=== PATIENT | female | born 1990 | race Caucasian/White ===

== ENCOUNTER → 2021-05-11 15:38 | Outpatient (BNVA) | payer SELFPAY | PROVIDERS: PCP Family Medicine; Visit Provider Family Medicine | DX: M25.562 Pain in left knee (principal); M79.672 Pain in left foot | CPT/HCPCS: 73562; 73630 ==

== ENCOUNTER 2021-12-09 14:15 | Emergency (ER) | payer MEDICAID, SELFPAY ==
[2021-12-09 14:20] VITALS: BP 128/75; PULSE 107; RESP 14; TEMP 36.2; O2SAT 100; BMI 23.0
--- NOTE | 2021-12-09 14:58 | CTR_ITS ---
PROCEDURE INFORMATION: Exam: CT Neck With Contrast Exam date and time: 12/09/2021 4:05 PM Age: 31 years old Clinical indication: Neck pain and other: Left side face/teeth pain; Additional info: Left side facial pain, swelling and trouble swallowing. Multiple antibiotics not helping TECHNIQUE: Imaging protocol: Computed tomography of the neck with contrast. Radiation optimization: All CT scans at this facility use at least one of these dose optimization techniques: automated exposure control; mA and/or kV adjustment per patient size (includes targeted exams where dose is matched to clinical indication); or iterative reconstruction. Contrast material: OMNIPAQUE 350; Contrast volume: 95 ml; Contrast route: INTRAVENOUS (IV); COMPARISON: No relevant prior studies available. RADIATION DOSE METRICS: Total DLP (mGy-cm): 210.61 FINDINGS: Paranasal sinuses: There is marked mucosal thickening inferior left maxillary sinus measuring up to 18 mm in thickness. This could represent odontogenic maxillary sinusitis. There is mucosal thickening in multiple ethmoid air cells. Dental: There are findings of extraction of the left 1st upper maxillary molar with an empty air-filled socket. Pharynx: Tonsils and adenoids are mildly prominent without evidence of tonsillitis. Larynx: Unremarkable. Epiglottis is normal. Prevertebral and retropharyngeal spaces: Unremarkable. Salivary glands: Normal. Glands are normal in size. Thyroid: There are few tiny thyroid cysts. No further evaluation necessary. Lymph nodes: Unremarkable. No lymphadenopathy. Trachea: Visualized trachea is unremarkable. Lungs: Unremarkable as visualized. Bones/joints: Unremarkable. No acute fracture. 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 Soft tissues: Unremarkable. No significant soft tissue swelling. CT/CT neck w con* [id number] IMPRESSION: Left maxillary sinus disease, worrisome for odontogenic sinusitis. COMMENTS: Consistent with the [employer]'s Incidental Findings Committee white paper (J Am Valdez Radiol 2015): In patients under 35 years old with an incidental thyroid nodule equal to or greater than [address], MRI or extrathyroidal US, further evaluation with dedicated thyroid US is recommended for patients with normal life expectancy and without comorbidities. For smaller nodules without suspicious features, no further evaluation or follow up is recommended.
--- NOTE | 2021-12-09 14:59 | W.ED.DENTAL ---
HPI - Dental/Oral General: Chief complaint: Dental/Oral Stated complaint: tooth infection Time Seen by Provider: 12/09/21 14:20 History of Present Illness: Patient is a 31-year-old female comes to the ED with left maxillary pain and swelling. Approximately 7 days ago patient had one of her top left molars removed. Since dental procedure she has been having left maxillary pain and swelling. She has been on a course of oral antibiotics and it has not helped. She endorses having left maxillary sinus pain and pressure. Endorses postnasal drainage. Her voice is changed and sounds more hoarse and she also endorses having some trouble swallowing. She has had some low-grade fevers and some episodes of nausea and vomiting but is able to keep most of her p.o. food and fluids down. She also endorses feeling like she has trouble breathing due to the postnasal drip and sinus congestion and drainage. Patient has been taking Tylenol and ibuprofen to help with symptoms. Associated symptoms: Reports fever(s); Denies odynophagia Review of Systems Const: Reports: fever(s); Denies: chills or fatigue Eyes: Denies: change in vision or eye discomfort ENMT: Reports: nasal discharge, nasal congestion, post nasal drip and sinus pain (Left maxillary sinus pain); Denies: throat pain or odynophagia Card: Denies: chest pain, palpitations, edema, swelling of feet/ankles, dyspnea on exertion or orthopnea Resp: Denies: dyspnea, productive cough or non-productive cough GI: Denies: abdominal pain, nausea, vomiting, diarrhea, constipation or hematochezia : Denies: flank pain, dysuria or hematuria Musc: Denies: neck pain, back pain or extremity swelling Skin/Breast: Denies: rash or new lesions Neuro: Denies: headache(s), numbness in extremities or weakness in extremities PFS ED PFSH: Medical History No pertinent family history Surgical History No pertinent past surgical history Physical Exam Const: COMMON NORMALS: patient oriented x3 and alert GENERAL APPEARANCE: cooperative OTHER: Patient has a raspy/ hot potato sounding voice when speaking. She says this started a couple days after dental procedure last week. HENMT: COMMON NORMALS: normocephalic and Normal external nose present HEAD & SCALP: normocephalic FACE & SINUS: sinus tenderness sphenoid (Left side), ethmoid (Left side) and maxillary (Left side) and Facial tenderness on exam of face and sinuses on the left maxilla NOSE: Normal external nose present and Nasal discharge present clear MOUTH: Normal oral and palatal mucosa present TEETH & GINGIVA IMAGES: 1. Tooth #14 was surgically removed?no purulent drainage seen. Some mild surrounding gingival edema. THROAT: posterior oropharynx normal and uvula midline Eye: COMMON NORMALS: conjunctivae normal GENERAL EYE: appearance normal, both eyes and all related structures CONJUNCTIVA: Yes conjunctivae normal Neck/C-Spine: COMMON NORMALS: supple GENERAL: Yes normal visual inspection Resp: COMMON NORMALS: normal respiratory effort, No retractions, No use of accessory muscles and clear to auscultation bilaterally AUSCULTATION: clear to auscultation bilaterally Cardio: COMMON NORMALS: regular rate, regular rhythm, S1 normal heart sound present, S2 normal heart sound present, No gallops present (Cardio), No clicks present (Cardio), No murmurs present (Cardio) and Peripheral pulses 2+ throughout RATE: regular rate RHYTHM: regular rhythm HEART SOUNDS: S1 normal heart sound present and S2 normal heart sound present PERIPHERAL PULSES: Peripheral pulses 2+ throughout GI: COMMON NORMALS: Normal to inspection, nondistended, normoactive bowel sounds present, Soft to palpation, non-tender and no masses PALPATION: Yes Soft to palpation : COMMON NORMALS: Yes no CVA tenderness BLADDER/KIDNEY EXAM: Yes no CVA tenderness Back/Pelvis: COMMON NORMALS: no CVA tenderness Extremity: COMMON NORMALS: normal to inspection Neuro: COMMON NORMALS: patient oriented x3 SENSORIUM/ORIENTATION: Yes alert GAIT: Yes Normal gait present Skin: GENERAL SKIN EXAM: dry skin Course Vital Signs: Vital signs: Vital Signs Temperature 97.1 F L 12/09/21 14:20 Pulse Rate 107 H 12/09/21 15:41 Respiratory Rate 14 12/09/21 15:41 Blood Pressure 128/75 12/09/21 15:41 Pulse Oximetry 100 12/09/21 15:41 Oxygen Delivery Me thod 12/09/21 15:41 MDM - Dental/Oral Medical Decision Making Patient is a 31-year-old female comes to the ED with left maxillary pain and swelling. Approximately 7 days ago patient had one of her top left molars removed. Since dental procedure she has been having left maxillary pain and swelling. She has been on a course of oral antibiotics and it has not helped. Provider saw her today and put her on Augmentin but told her to come to the ED for evaluation. Vitals are stable patient appears nontoxic and in no acute distress. She has some left maxillary sinus tenderness but the rest of exam is benign. CBC and CMP were unremarkable. CT of neck showed left maxillary sinus disease which could likely be odontogenic sinusitis. Patient was given dose of IV antibiotics and steroids here in the ED. I placed an order with case management for patient be referred to ENT for follow-up. She was discharged home with a prescription for Medrol Dosepak and told to continue taking her Augmentin as previously prescribed. I told her to contact her dentist who performed procedure for follow-up as well. Return to ED precautions given. Patient understood and agreed with plan. Lab Data I reviewed the patient's lab results. : 12/09/21 15:32 12/09/21 15:[address] 12/09/21 14:58 IMPRESSION: Left maxillary sinus disease, worrisome for odontogenic sinusitis. COMMENTS: Consistent with the [employer]'s Incidental Findings Committee white paper (J Am Valdez Radiol 2015): In patients under 35 years old with an incidental thyroid nodule equal to or greater than [address], MRI or extrathyroidal US, further evaluation with dedicated thyroid US is recommended for patients with normal life expectancy and without comorbidities. For smaller nodules without suspicious features, no further evaluation or follow up is recommended. Laboratory Results WBC 5.7 10^3/uL (4.0-10.0) 12/09/21 15:32 RBC 4.24 10^6/uL (4.1-5.3) 12/09/21 15:32 Hgb 12.9 g/dL (11.5-15.3) 12/09/21 15:32 Hct 38.3 % (37.0-47.0) 12/09/21 15:32 MCV 90.3 fl (81-99) 12/09/21 15:32 MCH 30.4 pg (28.0-34.0) 12/09/21 15:32 MCHC 33.7 g/dL (30.0-36.0) 12/09/21 15: RDW 13.6 % (12.1-15.1) 12/09/21 15: Plt Count 252 10^3/cmm (130-400) 12/09/21 15:32 MPV 9.1 fL (7.4-10.4) 12/09/21 15: Neut % (Auto) 68.6 % 12/09/21 15: Lymph % (Auto) 22.1 % 12/09/21 15:32 Franklin % (Auto) 6.8 % 12/09/21 15: Eos % (Auto) 1.6 % 12/09/21: Baso % (Auto) 0.4 % 12/09/21: Neut # (Auto) 3.92 10^3/uL (1.8-7.7) 12/09/21 15: Lymph # (Auto) 1.3 10^3/uL (0.8-4.8) 12/09/21 15: Franklin # (Auto) 0.4 10^3/uL (0.2-0.9) 12/09/21 15: Eos # (Auto) 0.1 10^3/uL (0.0-0.8) 12/09/21: Baso # (Auto) 0.0 10^3/uL (0.0-0.1) 12/09/21 15: Nucleated RBC % (auto) 0 % 12/09/21 15: Nucleated RBCs # 0.0 /100WBC 12/09/21 15:32 Sodium 136 mmol/L (136-145) 12/09/21 15:32 Potassium 3.9 mmol/L (3.5-5.1) 12/09/21 15:32 Chloride 100 mmol/L (98-107) 12/09/21 15: Carbon Dioxide 25 mmol/L (22-29) 12/09/21 15:32 Anion Gap 14.9 (5-19) 12/09/21 15:32 BUN 8 mg/dL (6-20) 12/09/21 15:32 Creatinine 0.6 mg/dL (0.5-0.9) 12/09/21 15:32 GFR Calculation 116.6 mL/min (90-130) 12/09/21 15:32 Glucose 89 mg/dL (65-115) 12/09/21 15:32 Calculated Osmolality 280 mOsm/kg (285-295) L 12/09/21 15:32 Calcium 9.6 mg/dL (8.5-10.5) 12/09/21 15:32 Total Bilirubin 0.2 mg/dL (0.15-1.2) 12/09/21 15:32 AST 21 U/L (0-32) 12/09/21 15:32 ALT 29 U/L (0-33) 12/09/21 15:32 Alkaline Phosphatase 71 U/L (35-105) 12/09/21 15:32 Total Protein 8.0 g/dL (6.6-8.7) 12/09/21 15:32 Albumin 4.6 g/dL (3.5-5.2) 12/09/21 15:32 Globulin 3.4 g/dL (1.3-4.6) 12/09/21 15:32 HCG, Qual Negative (Negative) 12/09/21 15:32 Discharge Plan Discharge Patient Disposition: Home Clinical Impression: Left maxillary sinusitis Condition: Stable Prescriptions: New Medrol (Shashi) 4 mg tablets,dose pack See Rx Instructions .ROUTE .COMPLEX Qty: 21 0RF Rx Instructions: orally per package directions No Action penicillin V potassium 500 mg tablet 500 mg PO QID Rx Instructions: UNTIL FINISHED (RX FILLED 12/02/21 7D/S) hydrocodone-acetaminophen 10-325 mg tablet 1 tab PO Q4H PRN (Reason: Pain) ibuprofen 200 mg Tablet 600 mg PO Q6H PRN (Reason: Pain) ProAir HFA 90 mcg/actuation Hfa Aerosol Inhaler 2 puff INHALATION QID PRN (Reason: Shortness Of Breath) Multivitamins 28 mg iron- 800 mcg Tablet 1 tab PO DAILY Discharge Orders: Discharge ED (Routine); Ordered 12/09/21 Ordered By: Chacho Robles Discharge Diet: Regular Discharge Activity: Increase activity as tolerated Patient Instructions: Sinusitis (ED) Activity Restrictions/Additional Instructions: Follow-up with medical provider as directed. Contact your dentist tomorrow morning to let them know about left maxillary sinusitis that could come from recent dental procedure. Case management should be contacted in the next several days set up an appoint with ENT for follow-up. Take your previously prescribed antibiotic. Sending you with a prescription for prednisone Dosepak so take that to help with inflammation. Use [id number] Flonase to help with symptoms as well. Return to the ER or your medical provider if condition worsens. Please read and understand discharge instructions. Thank you for choosing [facility] for your healthcare needs today. Please realize this is an emergency room and that we are providing you with a medical screening exam and this may not be complete and all inclusive of all the testing and or work up that you may need to determine your ailment or severity of your illness. It is very important that you follow up as instructed or that you return to the Emergency Department should you have concerns or if your condition changes or worsens in any way. Coding Level of Care Code ED Center Customer Service Associate for Eron Simon Exam Comprehensive
[2021-12-09] MEDS: sodium chloride 0.9% 500 ML 999 ML IV (15:39)
[2021-12-09 15:41] VITALS: BP 128/75; PULSE 107; RESP 14; O2SAT 100
[2021-12-09 15:42] LABS: Basophils % 0.4 %; Eosinophils # 0.1 10^3/uL (0.0-0.8); Eosinophils % 1.6 %; Hematocrit 38.3 % (37.0-47.0); Hemoglobin 12.9 g/dL (11.5-15.3); Lymphocytes # 1.3 10^3/uL (0.8-4.8); Lymphocytes % 22.1 %; Mean Corpuscular HGB Conc 33.7 g/dL (30.0-36.0); Mean Corpuscular Hemoglobin 30.4 pg (28.0-34.0); Mean Corpuscular Volume 90.3 fl (81-99); Mean Platelet Volume 9.1 fL (7.4-10.4); Monocytes # 0.4 10^3/uL (0.2-0.9); Monocytes % 6.8 %; Neutrophils # 3.92 10^3/uL (1.8-7.7); Neutrophils % 68.6 %; Nucleated Red Blood Cells % 0 %; Platelet Count 252 10^3/cmm (130-400); Red Blood Count 4.24 10^6/uL (4.1-5.3); Red Cell Distribution Width 13.6 % (12.1-15.1); White Blood Count 5.7 10^3/uL (4.0-10.0)
[2021-12-09 15:56] LABS: HCG, Serum Qual Negative (Negative)
[2021-12-09 16:10] LABS: Alanine Aminotransferase 29 U/L (0-33); Albumin Level 4.6 g/dL (3.5-5.2); Alkaline Phosphatase 71 U/L (35-105); Anion Gap 14.9 (5-19); Aspartate Amino Transferase 21 U/L (0-32); Blood Urea Nitrogen 8 mg/dL (6-20); Calcium 9.6 mg/dL (8.5-10.5); Carbon Dioxide 25 mmol/L (22-29); Chloride 100 mmol/L (98-107); Globulin 3.4 g/dL (1.3-4.6); Glomerular Filtration Rate 116.6 mL/min (90-130); Glucose 89 mg/dL (65-115); Osmolality Calculated 280 mOsm/kg (285-295); Potassium 3.9 mmol/L (3.5-5.1); Sodium 136 mmol/L (136-145); Total Bilirubin 0.2 mg/dL (0.15-1.2)
[2021-12-09] MEDS: iohexol 350 mg/mL 100 mL Btl IV (16:16)
[2021-12-09] MEDS: ketorolac 30 mg/mL INJ IVP (17:30)
[2021-12-09] MEDS: dexamethasone 10 mg/mL INJ IVP (17:56)
[2021-12-09] MEDS: ampicillin-sulbactam 3 GM in sodium chloride 0.9% (plus) 50 ML IV (17:56)
--- NOTE | 2021-12-10 10:24 | DCPLANNER ---
Addendum entered by Evelin Rodriguez 12/17/21 13:09: clerical manager received the following message from the ENT clinic regarding follow up appointment: [facility] 12/15 On Mon 4:06p Dec 13, 2021 Linn Mayorga (Covering For: ENT Front Office) Wrote To: ENT Front Office Jan 05 next available appt day. attempted to reach patient. [facility] 12/13 Original Note: clerical manager had message to schedule a follow up appointment for patient with ENT. clerical manager sent patients information to the front office staff at ENT. Patients information will be printed and reviewed. Clinic will call patient with appointment information.
== END 2021-12-09 18:14 | disposition home or self-care (01) ==
PROVIDERS: Emergency Provider Physician Assistant
DX: J32.0 Chronic maxillary sinusitis (principal)
CPT/HCPCS: 36415; 70491; 80053; 84703; 85025; 96361; 96374; 96375; 99285; J0295; J1100; J1885; J7040; Q9967